=== PATIENT | male | born 1970 | race Caucasian/White ===

== ENCOUNTER 2018-06-25 08:19 | Emergency (ER) | payer OTHER ==
[~2018-06-25] VITALS: Ht 195.6 cm; Wt 81.7 kg
[~2018-06-25 08:19] MED LIST: ONDA4 PO; OXYACE5T; Percocet 7.5-31 EACH PO
[2018-06-25] MEDS ORDERED: Norco 7.5-3251 EACH PO (11:45)
[2018-06-25] MEDS ORDERED: Robaxin500 MG PO (11:45)
== END 2018-06-25 11:53 | disposition home or self-care (01) ==
LOC: ER 08:19
DX: F07.81 Postconcussional syndrome (principal); R07.89 Other chest pain; M54.2 Cervicalgia; Z88.0 Allergy status to penicillin; V89.2XXA Person injured in unspecified motor-vehicle accident, traffic, initial encounter
CPT/HCPCS: 71046; 72040; 72070; 96372; 99284-25; J1885